=== PATIENT | female | born 1950 | race Caucasian/White ===

== ENCOUNTER 2024-06-22 10:15 | Emergency (ER) | payer MEDICARE, SELFPAY ==
[2024-06-22 10:26] VITALS: BP 128/79; PULSE 79; RESP 20; TEMP 37.1; O2SAT 98
[2024-06-22 10:35] VITALS: BP 128/79; PULSE 79; RESP 20; TEMP 37.1; O2SAT 98
--- NOTE | 2024-06-22 11:37 | ED.URI ---
HPI - URI/Sore Throat General Chief Complaint: Upper Respiratory Infection Stated Complaint: Cough, shortness of breath Time Seen by Provider: 06/22/24 11:38 Source: patient, RN notes reviewed and old records reviewed Mode of arrival: ambulatory Limitations: no limitations History of Present Illness HPI Narrative: 73-year-old female to Express Care with complaint of postnasal drainage, occasional headache, productive cough with white/ yellow sputum and chest tightness for 4 days. Patient reports left ear discomfort and states this sounds like someone is crackling paper in her ear. Patient has attempted to treat at home with Tylenol, Mucinex and Vicks vapor rub with some relief. Patient able to tolerate fluids by mouth. Respirations even and nonlabored. patient in no acute distress. Related Data Home Medications Medication Instructions Recorded Confirmed calcium carbonate (Oyster Shell 500 mg PO BID 08/08/20 06/22/24 Calcium) cholecalciferol (vitamin D3) 50 50 mcg PO DAILY 08/08/20 06/22/24 mcg (2,000 unit) capsule atorvastatin 40 mg tablet 40 mg PO DAILY 02/19/24 06/22/24 Allergies Allergy/AdvReac Type Severity Reaction Status Date / Time lisinopril AdvReac Mild Cough Verified 06/22/24 10:31 nitrofurantoin AdvReac Mild Abdominal Verified 06/22/24 10:31 [From Macrobid] Pain Review of Systems Review of Systems: All systems reviewed & are unremarkable except as noted in HPI and below Constitutional: Constitutional: Reports no additional constitutional complaints and Reports headache(s) Eyes: Eyes: Reports no additional eye complaints ENT: Reports as per HPI, Reports otalgia and Reports post nasal drip Cardiovascular: Cardiovascular: Reports no additional cardiovascular complaints, Denies chest pain and Denies dyspnea Respiratory: Respiratory: Reports no additional respiratory complaints, Reports cough and Denies dyspnea Musculoskeletal: Musculoskeletal: Reports no additional musculoskeletal complaints Neurologic: Reports system reviewed and no additional complaints, except as documented Psychiatric: Psychiatric: Reports no additional psychiatric complaints [facility] Past Medical History Medical History Anxiety Bursitis of left hip Dysuria GERD without esophagitis History of esophageal stricture dialated Hyperlipidemia Osteopenia of lumbar spine Dexa scan 11/19/[address] (12/2018) 5mm nodule in Lt upper lobe Surgical History Surgical History History of cholecystectomy (~2014) History of hysterectomy (~1977) Abnormal cervical cells Hx of umbilical hernia repair (~11/2020) Family History Family History Father Cerebrovascular accident Heart disease Mother Cerebrovascular accident Heart disease Mother Family history of cardiovascular disease Cerebrovascular accident Father Cerebrovascular accident Family history of coronary artery disease Social History Social History Social History: Caffeine-coffee/soda daily Smoking status: Former smoker Tobacco type: cigarettes Smoking end date: 08/25/96 Alcohol intake: current Alcohol use details: occasionally Substance use: never Substance use type: does not use Do You Feel Safe in your Home?: Yes Lack of Transportation: No Lack of Food: Never True Current Housing: I Have Housing Concerned About Future Housing: No Difficulty Paying Gas/Electric Bills: No Difficulty Paying for Meds: No Currently Unemployed: No Education: High School Diploma/GED Difficulty w/ Childcare or Family Care: No Occupation/Education: retired Gender identity (if verbalized by the patient): Female Agree to blood products: Yes Comments At the time of my signature, I reviewed and agree with the nursing past medical, surgical, social, and family history. There is no relevant family history pertinent to the patient complaint. Exam Const: General: cooperative, no acute distress, alert, tired appearing and well nourished Nutritional Appearance: well nourished Orientation/consciousness: patient oriented x3 Limitations: no limitations HENMT: Head: normal to inspection Ears: external ears normal and TM abnormal bulging on the left, erythematous on the left and with fluid behind the TM bilateral Face/Nose/Sinus: Normal external nose present, Normal nares present, normal facial exam, No erythema and No edema Face and sinus: normal facial exam, no erythema and no edema Mouth: Yes Normal oral and palatal mucosa present Throat: postnasal drainage Eyes: General: appearance normal, both eyes and all related structures Neck: Neck: normal visual inspection, full ROM and no meningeal signs Lymphatic: no lymphadenopathy noted and no lymphedema noted Chest: Chest palpation & inspection: normal inspection of the chest Resp: Effort & Inspection: normal respiratory effort and able to speak in complete sentences Auscultation: clear to auscultation bilaterally Cardio: Jugular venous distension: no JVD Rate: regular rate Rhythm: regular rhythm Back/Spine/Pelvis: Cervical Spine: cervical ROM normal Skin: General skin exam: normal color, no rashes or lesions noted and turgor normal Neuro: General: patient oriented x3, gait normal, moves all extremities and no meningeal signs Speech: normal speech Gait exam (Neuro): Normal gait present Extrem: General: normal to inspection, full ROM and capillary refill normal Psych: Appearance: grossly normal and well kempt Course Course Emergency Course: Some parts of this dictation were generated by voice recognition software and may contain typographical and/or grammatical inaccuracies. Level of Care: Express Care Visit Vital Signs Vital signs: Vital Signs Temperature 37.1 C 06/22/24 10:26 Pulse Rate 79 06/22/24 10:26 Respiratory Rate 20 06/22/24 10:26 Blood Pressure 128/79 06/22/24 10:26 Pulse Oximetry 98 06/22/24 10:26 Oxygen Delivery Room Air 06/22/24 10:26 Temperature 37.1 C 06/22/24 10:35 Pulse Rate 79 06/22/24 10:35 Respiratory Rate 20 06/22/24 10:35 Blood Pressure 128/79 06/22/24 10:35 Pulse Oximetry 98 06/22/24 10:35 Oxygen Delivery Room Air 06/22/24 10:35 reviewed MDM - URI/Sore Throat MDM Narrative Medical decision making narrative: 73-year-old female to Express Care with complaint of postnasal drainage, occasional headache, productive cough with white/ yellow sputum and chest tightness for 4 days. Patient reports left ear discomfort and states this sounds like someone is crackling paper in her ear. Patient has attempted to treat at home with Tylenol, Mucinex and Vicks vapor rub with some relief. Patient able to tolerate fluids by mouth. Respirations even and nonlabored. patient in no acute distress. On exam, left TM erythematous, bulging with fluid. Posterior oropharynx erythematous with postnasal drainage. Findings consistent with left otitis media. Patient is sitting comfortably in exam room nontoxic in appearance. Patient appropriate for outpatient treatment and follow-up. Discharge instructions reviewed with patient, as well as provided in writing per nursing staff. The instructions also include specific and strict return/GO TO THE ER as well as f/u information. All questions have been answered, and the patient deny any further questions with discharge and discharge plan. Some parts of this dictation were generated by voice recognition software and may contain typographical and/or grammatical inaccuracies. Differential Diagnosis Differential diagnosis: Likely upper respiratory infection, croup, otitis media, sinusitis, viral infection, bronchitis, influenza and pharyngitis Discharge Plan Discharge Clinical Impression: Acute left otitis media Patient Disposition: Home, Self-Care Condition: Stable Instructions: Ear Infection (ED) Additional Instructions: -Alternate Tylenol and Motrin per package directions for fever or pain. -Antihistamine medication such as Benadryl at night and Zyrtec/Claritin/Pamela during the day can help improve symptoms. -Use Flonase twice a day for 5 days then daily to help reduce the inflammation and dry up your sinuses. -You can also use Sudafed or Mucinex. Be sure to drink plenty of water with these medications at least 8 ounces with every dose and it is important to drink 8 to 10 glasses of water per day. Water is a natural decongestant -Eat and drink things that are easy to swallow, like tea or soup, or popsicles. -Oral rinses such as: Salt water gargles and/or may use topical anesthetic (eg. Chloraseptic spray) or lozenges to relieve dryness or throat pain). -Frequent hand washing or hand precision farming specialist is one of the best ways to prevent spread of infection. -Using a vaporizer or humidifier at night will also help thin secretions and help with coughing up phlegm. -Follow up with primary care provider in 2-3 days if condition is not improving; or seek ER visit if you have trouble breathing, cannot drink enough fluids, have muffled voice, difficulty opening your mouth, or severe swelling. Prescriptions: New amoxicillin 875 mg tablet 875 mg PO Q12H Qty: 20 0RF No Action calcium carbonate [Oyster Shell Calcium] 500 mg calcium (1,250 mg) tablet 500 mg PO BID cholecalciferol (vitamin D3) 50 mcg (2,000 unit) capsule 50 mcg PO DAILY atorvastatin 40 mg tablet 40 mg PO DAILY losartan-hydrochlorothiazide 100-12.5 mg tablet 1 tablet PO DAILY Qty: 90 1RF amlodipine 5 mg tablet 5 mg PO DAILY Qty: 90 1RF citalopram [Celexa] 10 mg tablet 10 mg PO DAILY Qty: 90 1RF omeprazole 40 mg capsule,delayed release(DR/EC) 40 mg PO DAILY Qty: 90 1RF tramadol 50 mg tablet 50 mg PO Q8H PRN (Reason: pain) Qty: 90 0RF Follow-up/Referrals: Camille,Swathi Winslow, ENROLLED NURSE [Primary Care Provider] -
== END 2024-06-22 11:50 | disposition home or self-care (01) ==
PROVIDERS: Emergency Provider Nurse Practitioner Family; PCP Nurse Practitioner Family
DX: H66.92 Otitis media, unspecified, left ear (principal); Z87.891 Personal history of nicotine dependence; K21.9 Gastro-esophageal reflux disease without esophagitis; E78.5 Hyperlipidemia, unspecified; M85.88 Other specified disorders of bone density and structure, other site
CPT/HCPCS: 99213; G0463

== ENCOUNTER 2025-06-15 09:11 | Outpatient (CLI) | payer MEDICARE, SELFPAY ==
--- OUTSIDE RECORDS SUMMARY | 2025-06-15 10:08 | XMS_ITS | Encounter Summary ---
Author Organization [facility] Healthcare Address [address] [place] [address] Care Team Providers Care Manager Training Name Role Phone Jose Damico MD Unavailable Carmina Rolle [employer] Primary Care Provider [phone] Katina Vera PT Unavailable Unavaila Gricel Ann [employer] Primary Care Provider [phone] Swathi Obrien [employer] Primary Care Provider + Carmina Rolle [employer] Primary Care Provider [phone] Reason for Visit * Reason Onset Date Comments Appointment Reminder Call 09/25/2022 Confir med Encounter Details Date Type Department Care Team (Late st Contact Info) Description 09/25/2022 Telephone [facility] [address] [place] [id number] Evonne Birch RT Appointment Reminder Call (Confirmed ) Social History Tobacco Use Types Packs/Day Years Used Date Smoking Tobacco: Former Cigarettes Smokeless Tobacco: Never Comments:Quit 25 years ago Alcohol Use Standard Drinks/Week Comments Yes 0 (1 standard drink = 0.6 oz pur e alcohol) occasional Comments No Sex and Gender Information Value Date Recorded Sex Assigned at Not on file 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 Gender Identity Not on file Sexual Orientation Not on file documented as of this encounter Plan of Treatment Upcoming Encounters Date Type Department Care Team (Late st Contact Info) Description 12/13/2025 10:00 AM CDT Hospital Encounter [address] [id number] Carlos Eduardo Briceño DO [address] [facility] [address] [place] [address] 12/13/2025 10:00 AM CDT - 12/13/2025 10:30 AM CDT Surgery [address] [id number] aCrlos Eduardo Briceño DO [address] [facility] [address] [place] [address] COLONOSCOPY Scheduled Procedures Name Priority Associated Diagnoses Date/Ti me COLONOSCOPY History of colonic polyps Family history of colon cancer 12/13/2025 10:00 AM CDT documented as of this encounter Visit Diagnoses Not on filedocumented in this encounter Care Teams Manager Training Relationship Specialty Start Date End Date Carmina Rolle NP PCP - General 07/25/21 08/13/23 Gricel Reddy NP [address] [place] [address] PCP - General Nurse Practitioner 08/14/23 10/01/23 Swathi Obrien NP [address] [facility] [address] [place] [address] PCP - General Nurse Practitioner 10/02/23 11/11/24 Carmina Rolle NP [address] [place] [address] PCP - General Family Medicine 11/12/24 Jose Damico MD Consulting Physician General Surgery 12/04/20 Katina Vera, PT Physical Therapist Physical Therapy 07/03/22 documented as of this encounter
--- OUTSIDE RECORDS SUMMARY | 2025-06-15 10:08 | XMS_ITS | Clinical Summary ---
Author Organization [facility] [address] Address [address] [place] [address] Care Team Providers Care Hog Driver Name Role Phone Jose Damico MD Unavailable Katina Vera PT Unavailable Unavaila Carmina Villeda FACILITIES MANAGER Primary Care Provider [phone] Allergies No known active allergies Medications cholecalciferol (VITAMIN D-3) 1,000 unit capsule one po daily. 0 0 05/13/2016 Active omeprazole (PriLOSEC) 40 mg capsule take 1 capsule by oral route every day before a meal 90 3 05/15/2015 Active citalopram (CeleXA) 10 mg tabletIndicatio ns:Anxiety with Depression Take 1 tablet (10 mg total) by mouth daily Active traMADoL (ULTRAM) 50 mg tablet Take 1 tablet (50 mg total) by mouth every 6 (six) hours as needed for pain Active calcium carbonate-vitam in D3 2,500 mg (1,000 mg elemental)-800 unit tablet Take by mouth Active amLODIPine (NORVASC) 5 mg tablet Take 1 tablet (5 mg total) by mouth daily 12/29/2023 Active telmisartan-hyd rochlorothiazid (MICARDIS HCT) 80-25 mg per tablet Take 1 tablet by mouth daily 90 tablet 3 09/22/2024 6 Active atorvastatin (LIPITOR) 40 mg tablet TAKE 1 TABLET(40 MG) BY MOUTH DAILY 90 tablet 3 01/26/2025 Active Active Problems Problem Noted Date Diagnosed Date History of colonic polyps 04/21/2025 Family history of colon cancer 04/21/2025 Morbid (severe) obesity due to excess calories 0 03/09/2024 Dyspnea on exertion 02/04/2024 Diarrhea 11/06/2021 Assessment & Plan (11/06/2021 2:09 PM CDT): Add fruit to every meal and questran HS, Return with shit list in 3 weeks. Uvular edema 12/04/2020 Incarcerated umbilical hernia 12/02/2020 Acute cystitis with hematuria 12/02/2020 Metabolic acidosis 12/02/2020 Sepsis 12/02/2020 Respiratory distress 12/02/2020 Acute respiratory failure with hypoxia Small bowel obstruction 12/01/2020 Assessment & Plan (12/14/2020 10:10 AM CDT): Would continue no heavy lifting and avoiding straining for at least a further 6 weeks. Continue abdominal binder for comfort. Given the dusky bowel and turbid fluid no mesh was placed in this was close primarily. We have gone over the risk of recurrence. Patient will continue bowel regimen to avoid straining. She will call back with any further questions or concerns. Special screening for malignant neoplasms, colon 01/28/2020 Overview (01/28/2020): Added automatically from request for surgery [id number] Nasal septal perforation 05/11/2018 Assessment & Plan (06/08/2018 12:45 PM CDT): We discussed options for: Continue nasal saline and humidifier Consider nasal septal button - silastic, in office procedure Or Surgical repair of nasal septal perforation Saskia wishes to continue nasal saline and humidifier at this time and call back if desire is to proceed with septal button or surgery Assessment & Plan (05/11/2018 4:16 PM CDT): Nasal saline 2 sprays into each nostril while looking down over the sink, do not sniff in 3-4 times daily Use humidifier in your living room after clearance from 's transplant specialist. Follow up in one month with hearing test No nose blowing, rubbing, wiping or picking Epistaxis 05/11/2018 Assessment & Plan (05/11/2018 4:16 PM CDT): Nasal saline 2 sprays into each nostril while looking down over the sink, do not sniff in 3-4 times daily Use humidifier in your living room after clearance from 's transplant specialist. Follow up in one month with hearing test No nose blowing, rubbing, wiping or picking Chronic nasal congestion 05/11/2018 Assessment & Plan (05/11/2018 4:17 PM CDT): Nasal saline 2 sprays into each nostril while looking down over the sink, do not sniff in 3-4 times daily Use humidifier in your living room after clearance from 's transplant specialist. Follow up in one month with hearing test No nose blowing, rubbing, wiping or picking Hearing loss 05/11/2018 Assessment & Plan (05/11/2018 4:17 PM CDT): Audiogram Difficulty in swallowing 10/05/2014 Uncontrolled hypertension 01/08/2014 Overview (11/28/2016): HYPERTENSION NOS Hyperlipidemia 05/10/2013 Overview (11/28/2016): HLD (hyperlipidemia) Common bile duct calculus 11/06/2011 Abnormal liver function tests 10/08/2011 Right upper quadrant abdominal pain 10/07/2011 UTI due to Klebsiella species LITTLE (obstructive sleep apnea) Encounters Date Type Department Care Team Description 04/21/2025 Telephone [facility] [place] [address] [facility] [address] [place] [id number] Malena Corcoran 04/13/2025 1:33 PM CDT - 04/13/2025 11:59 PM CDT Hospital Encounter [facility] [address] [place] [address] Asymptomatic menopausal state Discharge Disposition: Discharge to home or self care 03/23/2025 11:45 AM CDT Lab [facility]ocr[facility]ology Metabolism and Lipid [address] [place] [address] [place] [address] Uncontrolled hypertension; Sleep apnea-like behavior; Dyspnea on exertion; Hyperlipidemia, unspecified hyperlipidemia type 03/23/2025 11:00 AM CDT Office Visit [facility] [place] [address] [place] [id number] Rocio Dominguez NP Uncontrolled hypertension (Primary Dx); Sleep apnea-like behavior; Dyspnea on exertion; Hyperlipidemia, unspecified hyperlipidemia type 03/23/2025 Results Follow-Up [facility] [address] [place] [address] [place] [id number] Rocio Dominguez NP Basic metabolic panel 03/17/2025 Results Follow-Up [facility] [address] [facility] [address] [place] [address] Chaparrita Rocha NP Basic metabolic panel, eGFR 03/16/2025 3:05 PM CDT Lab [facility] [address] [place] [address] Uncontrolled hypertension; Sleep apnea-like behavior; Dyspnea on exertion; Hyperlipidemia, unspecified hyperlipidemia type from Last 3 Months Immunizations Immunization Administration Dates Next Due Influenza, Quadrivalent, Split, Intramuscular Influenza, Split 09/03/2012 Influenza, Trivalent, High D ose, Split, Preservative Free, Intramuscular 05/21/2016 Influenza, Trivalent, IM (MDV) 06/13/2014 Pneumococcal Conjugate PCV 13 04/25/2016 Surgical History Surgery Date Site/Laterality Comments PARTIAL HYSTERECTOMY partial hysterectomy CHOLECYSTECTOMY Cholecystectomy HYSTERECTOMY Hysterectomy TOTAL ABDOMINAL HYSTERECTOMY Hysterectomy, total COLONOSCOPY 01/23/2015 - 02/21/2015 HERNIA REPAIR 12/01/2020 CATARACT EXTRACTION 2019 Medical History Medical History Date Comments Cholelithiasis 2010 Cholelithiasis Hypertension Hypertension Hx Other Medical cholecystitis a nd choledocholithiasis; Outcome: improved - stent in place in CBD Hyperlipidemia Hyperlipidemia History of multiple allergies Al lergies Hx Other Medical High Cholestero l; Comments: DAVID 09/03/2016 - Gastric ulcer Family History Medical History Relation Name Comments Other Daughter 2 cholellithiasis ; Coronary artery disease Father Jayy Leon n Coronary artery disease; Other Father Jayy Jaimes CAD,CVA; Stroke Father Jayy Jaimes Stroke; Colon cancer Maternal Grandmother Cancer, colon; Coronary artery disease Mother Linda Esposito Coronary artery disease; Heart disease Mother Linda Esposito Heart dise ase; Other Mother Linda Esposito CAD, CVA; Stroke Mother Linda Esposito Stroke; Coronary artery disease Sister 1 Riley nary artery disease; Hypertension Sister 2 Isabel Hudson Stroke Sister 2 Isabel Hudson Breast cancer Neg Hx Ovarian cancer Neg Hx Thyroid cancer Neg Hx Relation Name Status Comments Daughter 1 Alive Daughter 2 Father Jayy Jaimes Alive Maternal Grandmother Mother Linda Esposito Alive Sister 1 Sister 2 Isabel Hudson Social History Tobacco Use Types Packs/Day Years Used Date Smoking Tobacco: Former Cigarettes 1 1992 Smokeless Tobacco: Never Tobacco Cessation:Counseling Given: Not Answered Comments:Quit 25 years ago Alcohol Use Standard Drinks/Week Comments Yes 0 (1 standard drink = 0.6 oz pur e alcohol) occasional Comments No Sex and Gender Information Value Date Recorded Sex Assigned at Not on file Legal Sex Female 7:38 PM [employer] Gender Identity Not on file Sexual Orientation Not on file Obstetrics History Para Term AB IAB SAB Ectopic Multiple Livin g Live Births 2 2 2 Date Outcome GA Total Labor Labor/2nd/3rd Weight Sex Type Anes PTL Elsie A1 A5 Name Clin Term Term Last Filed Vital Signs Vital Sign Reading Time Taken Comments Blood Pressure 120/62 03/23/2025 10:52 AM CDT Pulse 70 03/23/2025 10:52 AM CDT Temperature 36.8 C (98.2 F) 11/06/2022 11:08 AM CDT Respiratory Rate 18 05/19/2024 10:25 AM CDT Oxygen Saturation 96% 03/23/2025 10:52 AM CDT Inhaled Oxygen Concentration - - Weight 90.7 kg (200 lb) 03/23/2025 10:52 AM CDT Height 157.5 cm (5' 2) 03/23/2025 10:52 AM CDT Body Mass Index 36.58 03/23/2025 10:52 AM CDT Plan of Treatment Upcoming Encounters Date Type Department Care Team (Late st Contact Info) Description 12/13/2025 10:00 AM CDT Hospital Encounter [facility] [address] [place] [address] Carlos Eduardo Briceño, DO [address] [place] [place] [address] 12/13/2025 10:00 AM CDT - 12/13/2025 10:30 AM CDT Surgery [address] [address] Carlos Eduardo Briceño, [address] [place] [address] COLONOSCOPY Scheduled Procedures Name Priority Associated Diagnoses Date/Ti me COLONOSCOPY History of colonic polyps Family history of colon cancer 12/13/2025 10:00 AM CDT Health Maintenance Due Date Last Done Comments Depression Screening 1950 Hepatitis C Screening 1950 DTaP/Tdap/Td Vaccine (1 - Tdap) 1961 Hepatitis B Screening 1968 Zoster Vaccine (1 of 2) 2000 Well Visit 65+ 2015 Fall Risk Assessment 12/04/2021 12/04/2020 Covid-19 Vaccine (2024-09 6 season) 2025 05/21/2021, 10/24/2020, 09/26/2020 Influenza Vaccine (#1) 2025 , 05/16/2020, 05/28/2019, Additional history exists Breast Cancer Screening-Mammogram 12/31/2025 12/31/2024, 10/27/2023, 09/26/2022, Additional history exists Osteoporosis Screening-Bone Density Scan 04/13/2027 04/13/2025, 09/26/2022, 11/19/2018, Additional history exists Colon Cancer Screening-Colonoscopy 03/28/2030 03/28/2020, 02/16/2015, 02/16/2015 Pneumococcal vaccine 65+ Completed 02/11/2017, 09/0 08/2015 Colon Cancer Screening-CT Colonography Discontinued 03/28/2020, 02/16/2015, 02/16/2015 Colon Cancer Screening-DNA Stool Discontinued 03/28/2020, 02/16/2015, 02/16/2015 Colon Cancer Screening-FIT Discontinued 03/28, 02/16/2015, 02/16/2015 Colon Cancer Screening-Sigmoidoscopy Discontinued 03/28/2020, 02/16/2015, 02/16/2015 Procedures Procedure Name Priority Date/Time Associated Diagnosis Comments DEXA AXIAL SKELETON BONE DENSITY 1 OR MORE SITES Schedule Routine, Read Routine (OP Routine) 04/13/2025 1:42 PM CDT Asymptomatic menopausal state BASIC METABOLIC PANEL Routine 03/23/2025 11:43 AM CDT Uncontrolled hypertension Sleep apnea-like behavior Dyspnea on exertion Hyperlipidemia, unspecified hyperlipidemia type EGFR Routine 03/16/2025 3:14 PM CDT Uncontrolled hypertension Sleep apnea-like behavior Dyspnea on exertion Hyperlipidemia, unspecified hyperlipidemia type BASIC METABOLIC PANEL Routine 03/16/2025 3:14 PM CDT Uncontrolled hypertension Sleep apnea-like behavior Dyspnea on exertion Hyperlipidemia, unspecified hyperlipidemia type SCREENING MAMMOGRAM BILATERAL W LADARIUS Schedule Routine, Read Routine (OP Routine) 12/31/2024 12:34 PM CDT Screening mammogram, encounter for COLONOSCOPY 03/28/2020 7:17 AM CDT from Last 3 Months or Most Recently Relevant to Health Maintenance Results * Dexa Axial Skeleton Bone Density 1 or 2 Site (04/13/2025 1:42 PM CDT) Anatomical Region Laterality Modality Body N/A Other 04/13/2025 6:24 PM CDT Narrative 04/13/2025 6:26 PM CDT EXAM DESCRIPTION: DEXA AXIAL SKELETON BONE DENSITY 1 OR MORE SITES REASON FOR STUDY: 74 y/o year old F with given history of: z78.0 Screening. Consumer Educator/Model: [employer] SL (S/N [id number]) Facility LSC value of 0.022 for the AP spine, 0.027 for the femur, and 0.023 for the forearm. CLINICAL INFORMATION: Current height: 62 inches Maximum height: 64 inches Weight: 200 pounds Risk factors: Postmenopausal COMPARISON: 09/26/2022 Dissimilar scan types or analysis methods precludes assessment for calculating a significant change. FINDINGS: AP LUMBAR SPINE L1-L4: Total BMD is 0.884 g/cm2 T-score is -1.5 LEFT HIP: Total BMD is 0.788 g/cm2 T-score is -1.3 Femoral neck BMD is 0.576 g/cm2 T-score is -2.5 FRAX: FRAX not reported due to T-scores of hip, femoral neck and/or spine being at or below -2.5 (Osteoporosis). IMPRESSION: 1. Osteoporosis. REFERENCE: Bone mineral density: T-Score: Normal (T-score above or = -1.0) Low bone mass (T-score between -1.0 and -2.5) replaces the previously used term osteopenia Osteoporosis (T-score = or below -2.5) Z-Score: Within the expected range for age (Z-score above -2.0) Below the expected range for age (Z-score is -2.0 or below) Please see below follow up recommendations. Medical evaluation for secondary causes of low bone mineral density may be appropriate. FRAX is a World Health Organization validated fracture risk assessment tool that calculates a person's 10 year probability of a major osteoporosis related fracture and hip fracture. According to the National Osteoporosis Foundation guidelines, postmenopausal women and men age 50 or older with low bone mass and a 10 year probability of a major osteoporosis related fracture = or greater than 20% or a 10 year probability of a hip fracture = or greater than 3% should be considered for pharmacological treatment for the prevention of osteoporosis. For further information, including treatment recommendations, please refer to the 2019 ISCD Official Positions (http://www.iscd.org) and the NOF's Clinician's Guide to Prevention and Treatment of Osteoporosis (http://www.nof.org/professionals/clinical-guidelines) THIS IS AN ELECTRONICALLY VERIFIED FINAL REPORT 04/13/2025 6:26 PM - Electronically signed by Aidan Hutchinson M.D. MF: PRASHANT Report ID: [id number] Reading Location: [id number] Procedure Note Aidan Hutchinson MD - 04/13/2025 EXAM DESCRIPTION: DEXA AXIAL SKELETON BONE DENSITY 1 OR MORE SITES REASON FOR STUDY: 74 y/o year old F with given history of: z78.0 Screening. Consumer Educator/Model: [employer] SL (S/N 71820) Facility LSC value of 0.022 for the AP spine, 0.027 for the femur, and0.023 for the forearm. CLINICAL INFORMATION: Current height: 62 inches Maximum height: 64 inches Weight: 200 pounds Risk factors: Postmenopausal COMPARISON: 09/26/2022 Dissimilar scan types or analysis methods precludes assessment for calculating a significant change. FINDINGS: AP LUMBAR SPINE L1-L4: Total BMD is 0.884 g/cm2 T-score is -1.5 LEFT HIP: Total BMD is 0.788 g/cm2 T-score is -1.3 Femoral neck BMD is 0.576 g/cm2 T-score is -2.5 FRAX: FRAX not reported due to T-scores of hip, femoral neck and/or spine beingat or below -2.5 (Osteoporosis). IMPRESSION: 1. Osteoporosis. REFERENCE: Bone mineral density: T-Score: Normal (T-score above or = -1.0) Low bone mass (T-score between -1.0 and -2.5) replaces thepreviously used term osteopenia Osteoporosis (T-score = or below -2.5) Z-Score: Within the expected range for age (Z-score above -2.0) Below the expected range for age (Z-score is -2.0 or below) Please see below follow up recommendations. Medical evaluation forsecondary causes of low bone mineral density may be appropriate. FRAX is a World Health Organization validated fracture risk assessmenttool that calculates a person's 10 year probability of a major osteoporosisrelated fracture and hip fracture. According to the National OsteoporosisFoundation guidelines, postmenopausal women and men age 50 or older with low bonemass and a 10 year probability of a major osteoporosis related fracture = or greater than 20% or a 10 year probability of a hip fracture = or greaterthan 3% should be considered for pharmacological treatment for the preventionof osteoporosis. For further information, including treatment recommendations, please referto the 2019 ISCD Official Positions (http://www.iscd.org) and the NOF's Clinician's Guide to Prevention and Treatment of Osteoporosis (http://www.nof.org/professionals/clinical-guidelines) THIS IS AN ELECTRONICALLY VERIFIED FINAL REPORT 04/13/2025 6:26 PM - Electronically signed by Aidan Hutchinson M.D. MF: PRASHANT Report ID: [id number] Reading Location: [id number] Carmina Rolle NP IMG DXA PROCEDURES Final Resu lt * (ABNORMAL) Basic metabolic panel (03/23/2025 11:43 AM CDT) [facility] Glucose 101(H) 64 - 99 mg/dL [facility] Comment: NONFASTING GLUCOSE RANGE = 64-199 mg/dL FASTING GLUCOSE 64 - 99 = NORMAL FASTING GLUCOSE 100 - 125 = IMPAIRED FASTING GLUCOSE FASTING GLUCOSE >=126 = PROVISIONAL DIAGNOSIS OF DIABETES Potassium 4.5 3.3 - 5.1 mmol/L [facility] Creatinine 1.21(H) 0.60 - 1.10 mg/dL [facility] BUN 24(H) 7 - 23 mg/dL [facility] Sodium 140 135 - 145 mmol/L [facility] Chloride 103 95 - 107 mmol/L [facility] CO2 Content 26 21 - 29 mmol/L [facility] Calcium 9.6 8.6 - 10.3 mg/dL [facility] eGFR 47.0(L) >60.0 mL/min/1.7 3 m2 [facility] Blood 03/23/2025 11:4 3 AM CDT 03/23/2025 12:48 PM CDT Rocio Dominguez NP LAB BLOOD ORDERABLES Final Resul t [facility] * (ABNORMAL) eGFR (03/16/2025 3:14 PM CDT) eGFR 42(L) >=60 mL/min/1. 73 m2 Comment: Interpretive Data Reference Interval Normal >/= 90 mL/min/1.73m2 Mildly decreased* 60 - 89 mL/min/1.73m2 Mildly to moderately decreased 45 - 59 mL/min/1.73m2 Moderately to severely decreased 30 - 44 mL/min/1.73m2 Severely decreased 15 - 29 mL/min/1.73m2 Kidney Failure < 15 mL/min/1.73m2 *Relative to young adult level Estimated glomerular filtration rate is determined by the 2020 CKD-EPI equation recommended by the National Kidney Foundation (A Unifying Approach to GFR Estimation: Recommendations of the NKF-ASK Task Force on Reassessing the Inclusion of Race in Diagnosing Kidney Disease, JASN 2020). The CKD-EPI equation should not be used for patients with unstable renal function and has not been validated in children and those over 70. Current interpretive data was last reviewed 2021. Blood 03/16/2025 3:14 PM CDT 03/16/2025 3:55 PM CDT us Rocio Dominguez FACILITIES MANAGER LAB BLOOD ORDERABLES Final Resul t Performing Organization Address [facility] Co de Phone Number [facility] [address] [facility] Department [place] [address] * (ABNORMAL) Basic metabolic panel (03/16/2025 3:14 PM CDT) Sodium 139 135 - 145 mmol/L [facility] Potassium, pl 4.2 3.3 - 4.9 mmol/L [facility] Chloride 103 97 - 110 mmol/L [facility] CO2 24 22 - 32 mmol/L [facility] Anion gap 12 2 - 15 mmol/L [facility] BUN 24 6 - 25 mg/dL [facility] Creatinine 1.32(H) 0.60 - 1.10 mg/dL [facility] Glucose 99 70 - 199 mg/dL [facility] Comment: Interpretive Data Fasting glucose >/= 126 mg/dl is diagnostic for diabetes. Fasting is defined as no caloric intake for at least 8 hours. Fasting glucose between 100 mg/dl to 125 mg/dl is diagnostic of prediabetes. In a patient with classic symptoms of hyperglycemia or hyperglycemic crisis, a random glucose >/= 200 mg/dl is diagnostic for diabetes. In the absence of unequivocal hyperglycemia, results should be confirmed by repeat testing. The classification and Diagnosis of Diabetes Diabetes Care 2021; 46: S19-S40. Current interpretive data was last revised 2022. Calcium 9.2 8.5 - 10.3 mg/dL [facility] Blood 03/16/2025 3:14 PM CDT 03/16/2025 3:55 PM CDT Rocio Rater FACILITIES MANAGER LAB BLOOD ORDERABLES Final Resul t [facility] [address] [facility] Department [place] [address] * Screening Mammogram Bilateral W Ladarius (12/31/2024 12:34 PM CDT) Anatomical Region Laterality Modality Breast Bilateral Mammography Impressions 12/31/2024 12:46 PM CDT Bilateral No evidence of malignancy in either breast. OVERALL BI-RADS FINAL ASSESSMENT: 1 - Negative RECOMMENDATION: Recommend bilateral annual screening mammography. Narrative 12/31/2024 12:46 PM CDT EXAMINATION: Screening Mammogram Bilateral W Ladarius: 12/31/2024 COMPARISON: Relevant prior studies available at the time of interpretation were reviewed. TECHNIQUE: Mammography was performed with 2D and digital breast tomosynthesis (DBT) images. CAD was utilized. BREAST PARENCHYMAL COMPOSITION: There are scattered areas of fibroglandular density. FINDINGS: Bilateral There is no suspicious mass, calcification, or architectural distortion in either breast. Self Screening Mammogram IMG MAMMO PROCEDURES Fi nal Result * COLONOSCOPY (03/28/2020 7:17 AM CDT) Anatomical Region Laterality Modality Other Narrative Procedure Note Jose Berg MD - 03/28/2020 7:17 AM CDT [facility] Patient Name: Saskia Su Procedure Date: 03/28/2020 7:17 AM Date of : 1950 Admit Type: Outpatient Age: 69 Gender: Female Attending MD: Jose Berg M.D. Room: [facility] ENDOSCOPY ROOM 2 Note Status: Finalized Patient Profile: Refer to note in patient chart for documentation of history and physical. Procedure: Colonoscopy Indications: High risk colon cancer surveillance: Personalhistory of colonic polyps Referring MD: Haroon Knowles MD Providers: Jose Berg M.D. Impression: - Hemorrhoids found on perianal exam. - Two 5 to 6 mm polyps in the sigmoid colon and inthe transverse colon, removed with a hot biopsy forceps. Resected and retrieved. - Diverticulosis in the sigmoid colon, in the descending colon, in the transverse colon, at the hepatic flexure and in the ascending colon. - The examination was otherwise normal. Recommendation: - Discharge patient to home. - Resume previous diet. - Continue present medications. - Await pathology results. - Repeat colonoscopy in 5 years for surveillance. - Return to primary care physician as previously scheduled. Medicines: Propofol per Anesthesia Complications: No immediate complications. Estimated Blood Loss: Estimated blood loss: none. Procedure: Pre-Anesthesia Assessment: - This assessment was completed [Time of Assessment] prior to the administration of sedation. The benefits, risks and alternatives of theprocedure and sedation were discussed and informed consent was obtained. All questions were answered. Please referto the signed informed consent document in the medical record. The scope was passed under direct vision.The Colonoscope [id number] was introducedthrough the anus and advanced to the the cecum, identifiedby appendiceal orifice and ileocecal valve. The bowel preparation used was Miralax. The bowel preparation used was bisacodyl tablets. Bowel prep wasadministered using a single dose. The colonoscopy was performed without difficulty. The patient tolerated theprocedure well. The quality of the bowel preparation wasadequate to identify polyps. Findings: Hemorrhoids were found on perianal exam. Two sessile polyps were found in the sigmoid colon and transversecolon. The polyps were 5 to 6 mm in size. These polyps were removed with ahot biopsy forceps. Resection and retrieval were complete. Verificationof patient identification for the specimen was done by the physician and nurse using the patient's name and date. Estimated blood losswas minimal. Multiple small and large-mouthed diverticula were found in thesigmoid colon, descending colon, transverse colon, hepatic flexure andascending colon. The exam was otherwise without abnormality. Electronically signed by Jose Berg M.D. Jose Berg M.D. 03/28/2020 8:42:41 AM Number of Addenda: 0 Note Initiated On: 03/28/2020 7:17 AM Procedure Code(s): --- Professional --- 15494, Colonoscopy, flexible; with removal of tumor(s), polyp(s), or other lesion(s) by hot biopsy forceps Diagnosis Code(s): --- Professional --- K57.30, Diverticulosis of large intestine without perforation orabscess without bleeding D12.3, Benign neoplasm of transverse colon (hepatic flexure orsplenic flexure) D12.5, Benign neoplasm of sigmoid colon K64.9, Unspecified hemorrhoids Z86.010, Personal history of colonic polyps CPT copyright 2017 [employer]. All rights reserved. The codes documented in this report are preliminary and upon heating and ventilation engineer reviewmay be revised to meet current compliance requirements. Recognized by the [employer] for promoting quality in endoscopy Jose Berg MD ENDOSCOPY PROCEDURES Final Re sult from Last 3 Months or Most Recently Relevant to Health Maintenance Insurance MEDICARE [facility] Address: [facility] [address] [place] [address] COMMERCIAL GENERIC MEDICARE COMMERCIAL GENERIC MEDICARE COMMERCIAL GENERIC Advance Directives For more information, please contact: [phone] * Full Code (Latest Code Status on File) Date Activated Date Inactivated Comments 12/02/2020 8:08 PM 12/04/2020 6:02 PM * Full Code Date Activated Date Inactivated Comments 12/02/2020 12:43 AM 12/02/2020 8:08 PM * Full Code Date Activated Date Inactivated Comments 03/28/2020 7:05 AM 03/28/2020 1:45 PM * Full Code Date Activated Date Inactivated Comments 03/28/2020 7:05 AM 03/28/2020 7:05 AM Care Teams Hog Driver Relationship Specialty Start Date End Date Carmina Rolle NP [address] [place] [address] PCP - General Family Medicine 11/12/24 Jose Damico MD Consulting Physician General Surgery 12/04/20 Katina Vera, PT Physical Therapist Physical Therapy 07/03/22
--- OUTSIDE RECORDS SUMMARY | 2025-06-15 10:08 | XMS_ITS | Encounter Summary ---
Author Organization [facility] Healthcare Address [address] [place] [address] Care Team Providers Care Maintenance And Operations Supervisor Name Role Phone Jose Damico MD Unavailable Carmina Rolle TIE LAYER Primary Care Provider [phone] Katina Vera PT Unavailable Unavaila Gricel Ann TIE LAYER Primary Care Provider [phone] Swathi Obrien TIE LAYER Primary Care Provider + Carmina Rolle TIE LAYER Primary Care Provider Encounter Details Date Type Department Care Team (Late st Contact Info) Description 08/21/2022 Telephone [facility] [address] [place] [id number] Rin Goncalves, RT Social History Tobacco Use Types Packs/Day Years Used Date Smoking Tobacco: Former Cigarettes Smokeless Tobacco: Never Comments:Quit 25 years ago Alcohol Use Standard Drinks/Week Comments Yes 0 (1 standard drink = 0.6 oz pur e alcohol) occasional Comments No Sex and Gender Information Value Date Recorded Sex Assigned at Not on file 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 Gender Identity Not on file Sexual Orientation Not on file documented as of this encounter Plan of Treatment Upcoming Encounters Date Type Department Care Team (Late Contact Info) Description 12/13/2025 10:00 AM CDT Hospital Encounter [address] [address] Carlos Eduardo Briceño DO [address] [facility] [address] [place] [address] 12/13/2025 10:00 AM CDT - 12/13/2025 10:30 AM CDT Surgery [address] [address] Carlos Eduardo Briceño, DO [address] [facility] [address] [place] [address] COLONOSCOPY Scheduled Procedures Name Priority Associated Diagnoses Date/Ti me COLONOSCOPY History of colonic polyps Family history of colon cancer 12/13/2025 10:00 AM CDT documented as of this encounter Visit Diagnoses Not on filedocumented in this encounter Care Teams Maintenance And Operations Supervisor Relationship Specialty Start Date End Date Carmina Rolle NP PCP - General 07/25/21 08/13/23 Gricel Reddy NP [address] [place] [address] PCP - General Nurse Practitioner 08/14/23 10/01/23 Swathi Obrien NP [address] [place] [address] [address] [place] [id number] PCP - General Nurse Practitioner 10/02/23 11/11/24 Carmina Rolle NP [address] [place] [address] PCP - General Family Medicine 11/12/24 Jose Damico MD Consulting Physician General Surgery 12/04/20 Katina Vera, PT Physical Therapist Physical Therapy 07/03/22 documented as of this encounter
[2025-06-15 15:08] LABS: Hematocrit 40.4 % (37.0-47.0); Hemoglobin 12.9 g/dL (12.0-15.0); Immature Granulocyte Percent A 0.5 % (0-0.5); Lymphocytes Absolute Auto 3.33 K/mm3 (0.9-3.2); Mean Corpuscular HGB Conc 31.9 g/dl (32-36); Mean Corpuscular Hemoglobin 31.5 pg (26-34); Mean Corpuscular Volume 98.5 fl (80-100); Nucleated Red Blood Cells Absolute Auto 0.000 K/mm3 (0.0-0.012); Nucleated Red Blood Cells Perc 0.0 % (0.0-0.2); Platelet Count Result 298 k/mm3 (150-375); Red Blood Count 4.10 M/mm3 (4.2-5.4); White Blood Count 10.0 K/mm3 (4.5-10.0)
[2025-06-15 15:50] LABS: Alanine Aminotransferase 15 U/L (6-35); Albumin Level 4.2 g/dL (3.5-5.1); Alkaline Phosphatase 85 U/L (38-126); Anion Gap 9 mmol/L (4-12); Aspartate Amino Transferase 25 U/L (14-36); Bilirubin,Total 0.5 mg/dL (0.2-1.3); Blood Urea Nitrogen 15 mg/dL (7-17); Calcium 9.4 mg/dL (8.4-10.2); Carbon Dioxide 30 mmol/L (22-30); Chloride 100 mmol/L (98-107); Cholesterol 165 mg/dL (0-200); Estimated Glomerular Filt Rate > 60; Glucose 80 mg/dL (65-110); HDL Direct 50 mg/dL; Potassium 3.9 mmol/L (3.4-5.0); Sodium 139 mmol/L (137-145); Total Protein 7.4 g/dL (6.3-8.2); Triglycerides 94 mg/dL (<150)
[2025-06-15 19:11] LABS: Hemoglobin A1C 5.4 % (<5.7)
== END 2025-06-15 09:12 | disposition home or self-care (01) ==
LOC: ANHGOSHLAB 09:12
PROVIDERS: PCP Nurse Practitioner Family; Visit Provider Nurse Practitioner Family
DX: R73.03 Prediabetes (principal); E78.5 Hyperlipidemia, unspecified; I10 Essential (primary) hypertension
CPT/HCPCS: 36415; 80053; 80061; 83036; 85025